=== PATIENT | male | born 1960 | race Two or more races ===

== ENCOUNTER → 2024-07-22 | Outpatient (CLI) | payer MEDICAID, SELFPAY ==
--- NOTE | 2024-07-22 09:20 | XR_ITS ---
EXAMINATION: Ankle, left 3 views . Technique: Ankle AP, oblique, lateral 3 views Date and time of exam: July 22, 2024 0935 hours INDICATIONS: Ankle pain one year. FINDINGS: Advanced osteoarthritis tibiotalar joint Significant deformity talus with marked irregularity of the dorsal surface of the talus No acute fracture No ankle dislocation IMPRESSION: Advanced osteoarthritis tibiotalar joint
== END | disposition home or self-care (01) ==
LOC: SDIM 08:59
PROVIDERS: PCP Physician Assistant; Referring Provider Otolaryngology; Visit Provider Otolaryngology
DX: M19.072 Primary osteoarthritis, left ankle and foot (principal)
CPT/HCPCS: 73610

== ENCOUNTER → 2024-09-16 | Outpatient (CLI) | payer MEDICAID, SELFPAY ==
--- NOTE | 2024-09-16 10:16 | XR_ITS ---
EXAMINATION: Ankle, left 3 views . Technique: Ankle AP, oblique, lateral 3 views Date and time of exam: September 16, 2024 1036 hrs. Indications: Postop ankle fusion, history advanced osteoarthritis tibiotalar joint Findings: Tibiotalar ankle fusion, multiple orthopedic screws traversing fracture site Satisfactory alignment Impression: Status post tibiotalar fusion Significant osteoarthritis subtalar joint
== END | disposition home or self-care (01) ==
LOC: CDIM 10:10
PROVIDERS: PCP Physician Assistant; Referring Provider Student in an Organized Health Care Education/Training Program; Visit Provider Student in an Organized Health Care Education/Training Program
DX: M24.672 Ankylosis, left ankle (principal); M19.072 Primary osteoarthritis, left ankle and foot
CPT/HCPCS: 73610

== ENCOUNTER 2024-12-12 08:30 | Outpatient (RCR) | payer MEDICAID, SELFPAY ==
--- NOTE | 2024-12-02 09:07 | PTNOTE_ITS ---
PT OP Initial Eval Patient Information Outpatient Physical Therapy Treatment Date: 12/02/24 Visit Reasons: Pain in left foot Medical Diagnosis: M25.572 Treatment Dx #1: L ankle pain Start of Care: 12/02/24 Date of Onset: 09/02/24 Smoking Status Smoking Status: Never smoker Initial Assessment Subjective: Pt is 64 yr old tajik speaking male s/p L ankle fusion in August reports high pain in the ankle and difficulty walking. He has the walking boot on and uses B [employer] crutches to ambulate limited distances due to pain. This limits HH chore and work tolerances. PMH: HTN Pt goal: to get rid of the pain to walk better Objective: L ankle AROM: DF: unable PF: moves toes but ankle is fused TTP: high of medial and lateral aspects and plantar aspect, pain with forefoot inversion/eversion PROM Gait: antalgic with L foot turned out and lofstrand crutches Assessment: Pt presentation consistent with L ankle fusion with high TTP of ankle. Pt requires skilled therapy to meet goals and has fair rehab potential. Short Term and [employer] Goals 1. Ind with HEP 2. Decreased TTP of L ankle from high to min 3. Pt will ambulate without boot x limited community distances with <=3/10 L ankle pain Treatment Plan ? 1. Manual therapy ? 2. Therex ? 3. Modalities as indicated, moist heat, ice, estim Frequency and Duration: 2x a week for 12 visits plus the evaluation Certification Dates: 12/02/24 to 03/02/25 Procedure Charges OP PT Eval Mod Complex 30 minutes: Yes
--- NOTE | 2024-12-04 09:00 | PT.ODAYNRPT ---
PT Outpatient Daily Note OP Daily Note Outpatient Physical Therapy Treatment Date: 12/04/24 Visit Reasons: Pain in left foot Subjective: Pt reports L foot is doing ok, continues to use boot and clifford snot WB out of the boot. Pt has follow up with surgeon on Monday. Objective: Please see flow sheet for ther ex list. Assessment: Pt completed interventions with no complaints. Plan: Continue with POC. Length of Time (minutes) of Treatment: 30 Minutes Procedure Charges Therapeutic Exercise 30 minutes: Yes
--- NOTE | 2024-12-10 09:06 | PT.ODAYNRPT ---
PT Outpatient Daily Note OP Daily Note Outpatient Physical Therapy Treatment Date: 12/10/24 Visit Reasons: Pain in left foot Subjective: Pt c/o foot pain that is worse when out of the boot. Objective: Please see flow sheet for ther ex list. Assessment: Pt demonstrates poor activity tolerance due to pain response. Plan: Continue with POC. Length of Time (minutes) of Treatment: 30 Minutes Procedure Charges Therapeutic Exercise 30 minutes: Yes
--- NOTE | 2024-12-12 09:16 | PT.ODAYNRPT ---
PT Outpatient Daily Note OP Daily Note Outpatient Physical Therapy Treatment Date: 12/12/24 Visit Reasons: Pain in left foot Subjective: Pt reports he is out of the CAM boot when home for a few hours. PT notices the time he tries to put weight on his L foot it increases swelling and pain. Objective: Please see flow sheet for ther ex list. Assessment: Progression of interventions completed with minimal pain and increase swelling on lateral malleolus region. Plan: Continue with poC. Length of Time (minutes) of Treatment: 30 Minutes Procedure Charges Therapeutic Exercise 30 minutes: Yes
== END 2024-12-21 23:59 | disposition home or self-care (01) ==
LOC: CPTX 08:30
PROVIDERS: PCP Student in an Organized Health Care Education/Training Program; Referring Provider Student in an Organized Health Care Education/Training Program; Visit Provider Student in an Organized Health Care Education/Training Program
DX: M25.572 Pain in left ankle and joints of left foot (principal); R26.2 Difficulty in walking, not elsewhere classified; I10 Essential (primary) hypertension; Z98.890 Other specified postprocedural states
CPT/HCPCS: 97110; 97162

== ENCOUNTER 2025-01-15 11:00 | Outpatient (RCR) | payer MEDICAID, SELFPAY ==
--- NOTE | 2024-12-23 14:42 | PT.ODAYNRPT ---
PT Outpatient Daily Note OP Daily Note Outpatient Physical Therapy Treatment Date: 12/23/24 Visit Reasons: LEFT FOOT PAIN Subjective: Wearing cam boot, reports pain without it in the lateral and anterior ankle Objective: See F/S for therex Assessment: Poor WB tolerance of L foot/ankle limited by pain Plan: Continue per POC Length of Time (minutes) of Treatment: 30 Minutes Procedure Charges Therapeutic Exercise 30 minutes: Yes
--- NOTE | 2024-12-26 09:12 | PT.ODAYNRPT ---
PT Outpatient Daily Note OP Daily Note Outpatient Physical Therapy Treatment Date: 12/26/24 Visit Reasons: LEFT FOOT PAIN Subjective: Wearing a shoe on the L today, reports pain in the lateral and anterior ankle Objective: See F/S for therex Assessment: Poor WB tolerance of L foot/ankle limited by pain Plan: Continue per POC Length of Time (minutes) of Treatment: 30 Minutes Procedure Charges Therapeutic Exercise 30 minutes: Yes
--- NOTE | 2024-12-31 10:27 | PT.ODAYNRPT ---
PT Outpatient Daily Note OP Daily Note Outpatient Physical Therapy Treatment Date: 12/31/24 Visit Reasons: LEFT FOOT PAIN Subjective: Pt reports he had a follow up with his surgeon a few days ago, says ankle is healing well. Pt shared that he has been off the boot and not using crutches, ankle swells up sometimes at the end of the day. Objective: Please see flow sheet for ther ex list. Assessment: Pt presents in clinic ambulating with no AD, no CAM boot pt demonstrating out toeing gait during ambulation. Pt can slightl correct foot placement during gait but then revers to excessive out toeing gait. Plan: Continue with POC. Length of Time (minutes) of Treatment: 30 Minutes Procedure Charges Therapeutic Exercise 30 minutes: Yes
--- NOTE | 2025-01-02 13:19 | PT.ODAYNRPT ---
PT Outpatient Daily Note OP Daily Note Outpatient Physical Therapy Treatment Date: 01/02/25 Visit Reasons: LEFT FOOT PAIN Subjective: Pt reports L foot is swollen and sore today, no longer using AD. Objective: Please see flow sheet for ther ex list. Assessment: Interventions performed with minimal pain due to swelling of L ankle lateral>medial. Plan: Continue with POC. Length of Time (minutes) of Treatment: 30 Minutes Procedure Charges Therapeutic Exercise 30 minutes: Yes
--- NOTE | 2025-01-13 13:07 | PT.ODAYNRPT ---
PT Outpatient Daily Note OP Daily Note Outpatient Physical Therapy Treatment Date: 01/13/25 Visit Reasons: LEFT FOOT PAIN Subjective: Pt reports foot is doing a little better today. Objective: Please see flow sheet for ther ex list. Assessment: Pt demonstrates out toe gait, corrects with verbal cues but then reverts to out toe gait. Plan: Continue working on gait. Length of Time (minutes) of Treatment: 30 Minutes Procedure Charges Therapeutic Exercise 30 minutes: Yes
--- NOTE | 2025-01-15 13:08 | PT.ODAYNRPT ---
PT Outpatient Daily Note OP Daily Note Outpatient Physical Therapy Treatment Date: 01/15/25 Visit Reasons: LEFT FOOT PAIN Subjective: Pt reports foot continues to be painful, does not feel progress at this time. Pt usually takes pain meds to manage pain. Objective: Please see flow sheet for ther ex list. Assessment: Pt has poor activity tolerance with closed chain interventions due to aggravating symptoms. Plan: Continue with pOC. Length of Time (minutes) of Treatment: 30 Minutes Procedure Charges Therapeutic Exercise 30 minutes: Yes
== END 2025-01-20 23:59 | disposition home or self-care (01) ==
LOC: CPTX 11:00
PROVIDERS: PCP Student in an Organized Health Care Education/Training Program; Referring Provider Student in an Organized Health Care Education/Training Program; Visit Provider Student in an Organized Health Care Education/Training Program
DX: M25.572 Pain in left ankle and joints of left foot (principal); R26.2 Difficulty in walking, not elsewhere classified
CPT/HCPCS: 97110